=== PATIENT | male | born 2005 | race Caucasian/White ===

== ENCOUNTER 2025-07-06 03:02 | Emergency (ER) | payer SELFPAY ==
[~2025-07-06] VITALS: Ht 200.7 cm; Wt 90.7 kg
[2025-07-06] MEDS ORDERED: KETOROLAC TROMETHAMINE INJ 30 MG/ML VIAL ONE (03:33)
[2025-07-06 03:49] LABS: PLATELET COUNT (AUTO) 167 K/uL (150-450); RED BLOOD CELL COUNT(AUTO) 5.05 MIL/uL (4.5-6.0); RED CELL DISTRIBUTION WIDTH 13.2 % (11.5-15.0); WHITE BLOOD COUNT (AUTO) 6.2 K/uL (4.3-11.0)
[2025-07-06 03:54] LABS: CALCIUM, SERUM 8.7 mg/dL (8.5-10.1); CREATININE 1.2 mg/dL (0.6-1.3); SODIUM SERUM 140 mmol/L (136-145); UREA NITROGEN, BLOOD 9 mg/dL (7-18)
[2025-07-06 04:00] LABS: ASPARTATE AMINOTRANSFERASE 37 U/L (15-37); TOTAL PROTEIN, SERUM 6.9 g/dL (6.4-8.2)
[2025-07-06] MEDS: KETOROLAC TROMETHAMINE 15 MG/ML VIAL IV ONE (04:01)
[2025-07-06 04:04] LABS: INR 1.1 (0.91-1.10)
[2025-07-06] MEDS ORDERED: IOHEXOL-350 100 ML VIAL IV ONE (04:29)
[2025-07-06] MEDS ORDERED: CT SWABBABLE VALVE TRANS SET 1 EA INFUS.SET MC ONE (04:29)
[2025-07-06] MEDS ORDERED: IV NS 0.9% 250 ML IV ONE (04:29)
[2025-07-06 04:47] LABS: EOSINOPHILS % (MANUAL) 3 % (0-4); LYMPHOCYTES % (MANUAL) 35 % (16-48); MONOCYTES % (MANUAL) 12 % (0-11.0); NEUTROPHILS % (MANUAL) 50 (42-76)
[2025-07-06 04:48] LABS: PLATELET ESTIMATE ADEQUATE
[2025-07-06] MEDS ORDERED: POTASSIUM CHLORIDE 20 MEQ TAB.PRT.SR PO ONE (05:40)
[2025-07-06] MEDS: POTASSIUM CHLORIDE 20 MEQ TAB.PRT.SR PO ONE (05:44)
[2025-07-06 07:43] VITALS: BP 115/62; TEMP 98.4; O2SAT 98
== END 2025-07-06 07:45 | disposition home or self-care (01) ==
LOC: ER 03:28
DX: R07.9 Chest pain, unspecified (principal); M79.602 Pain in left arm; E87.6 Hypokalemia
CPT/HCPCS: 99285; 96374; 71275; 71045; 93005; 85027; 80048; 80076; 85378; 85007; 36415; 84484 ×2; 85730; J1885; J7050; Q9967